=== PATIENT | female | born 1990 | race Hispanic/Latino ===

== ENCOUNTER 2017-08-28 09:56 | Outpatient (CLI) | payer OTHER ==
--- NOTE | 2017-08-30 13:52 | RAD ---
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 FINDINGS/IMPRESSION: There is mild residue in the vallecula which subsequently clears. A barium tablet temporarily lodged in the vallecula was cleared with additional dry swallows. No laryngeal penetration or aspiration s een. Please see recommendations of the speech therapist for further management. POS: [facility]
== END 2017-08-28 09:57 | disposition home or self-care (01) ==
PROVIDERS: ATTEND Hospitalist
DX: I69.891 Dysphagia following other cerebrovascular disease (principal); R13.12 Dysphagia, oropharyngeal phase; R63.3 Feeding difficulties
CPT/HCPCS: 74230

== ENCOUNTER 2018-01-31 07:56 | Day surgery (SDC) | payer SELFPAY ==
[2018-01-30 13:04] VITALS: BMI 22.5
[2018-01-31] MEDS ORDERED: PROPOFOL 200 MG/20 ML VIAL ONE (13:46)
--- NOTE | 2018-02-01 09:25 | OP ---
PREPROCEDURE DIAGNOSES: 1. History of fluctuating weight, which is actually improved recently. 2. Recent admission for diarrheal illness, resolved. 3. Oropharyngeal dysphagia with recent modified barium swallow showing penetration, but no dom asp iration. She coughs to protect the airway and she is on a modified diet and swallowing regimen with Speech Pathology at the [facility]. POSTPROCEDURE DIAGNOSIS: Normal esophagogastroduodenoscopy. RECOMMENDATIONS: Continue plan per Speech Pathology as outlined in their notes from 09/04/2017. We would try to avoid PEG in this patient as she is alert and probably get significant pleasure from eat ing and she has not had any episodes of aspiration pneumonia. She was felt to have [id number] impairment of swallowing. PROCEDURE IN DETAIL: After the patient was informed of the risks, benefits, and possible complicatio ns of endoscopy including perforation, bleeding, reactions to medication and aspiration, informed con sent was obtained over the phone from family. The patient was brought to endoscopy suite where she w as sedated in usual fashion. Once she was comfortable, a bite block was placed in incisural orifice into the esophagus, stomach, second and third portion of duodenum and slowly removed. There was good visualization of mucosa. There is no evidence of hiatal hernia. No evidence of strictures. No anitha dence of achalasia. The upper esophageal sphincter appeared normal with no strictures. There was no esophagitis. The stomach was normal. retroflexed views. The duodenum was normal to third po rtion. The scope was removed. The patient tolerated the procedure well, no complications.
== END 2018-01-31 11:08 | disposition home or self-care (01) ==
LOC: SDC 07:56
PROVIDERS: ATTEND Internal Medicine Gastroenterology
PROC: 0DJ08ZZ Inspection of Upper Intestinal Tract, Via Natural or Artificial Opening Endoscopic (ICD-10-PCS; principal; 2018-01-31)
DX: R13.12 Dysphagia, oropharyngeal phase (principal); R63.4 Abnormal weight loss; Z88.8 Allergy status to other drugs, medicaments and biological substances
CPT/HCPCS: J2704